=== PATIENT | male | born 1960 | race Caucasian/White ===

== ENCOUNTER 2019-10-23 12:16 | Outpatient (CLI) | payer MEDICARE ==
[2019-10-23] MEDS ORDERED: OMNIPAQUE 350 MG/ML, 150 ML BOTTLE ONE (15:00)
== END 2019-10-23 23:59 | disposition home or self-care (01) ==
LOC: CFH 12:16
PROVIDERS: ATTEND Surgery
DX: I70.0 Atherosclerosis of aorta (principal); I70.8 Atherosclerosis of other arteries; N20.0 Calculus of kidney; M51.37 Other intervertebral disc degeneration, lumbosacral region; I77.1 Stricture of artery
CPT/HCPCS: 75635; 82565; Q9967